=== PATIENT | male | born 1945 | race Caucasian/White ===

== ENCOUNTER → 2018-08-31 | Outpatient (CLI) | payer OTHER ==
[2015-08-16 10:55] VITALS: BP 112/72
[~2018-08-31] MED LIST: ASPI-630 PO; ATOR40TA59 PO; CLON0.5T11 PO; METO-239 PO; OMEG1CAP6 PO; WARF-78 PO
--- NOTE | 2018-08-31 15:37 | RAD ---
EXAM: CT of the soft tissue neck without IV contrast CLINICAL HISTORY: PALPABLE MASS IN ANTERIOR NECK COMPARISON: None available. TECHNIQUE: CT of the neck was performed without IV contrast. Axial coronal and sagittal reformatted images were generated. PQRS compliance statement - One or more of the following individualized dose reduction techniques were utilized for this study: 1. Automated exposure control 2. Adjustment of the mA and/or kV according to patient size 3. Use of iterative reconstruction technique FINDINGS: Evaluation for soft tissue mass is limited given lack of IV contrast. A radiopaque marker is placed overlying the anterior neck just below the chin (at the level of the hyoid bone) at the site of palpable abnormality. Subjacent to the marker, normal subcutaneous fat tissue is seen without discrete encapsulated mass. Within the constraints of this noncontrast exam: Images through the skull base and cavernous sinuses are unremarkable. The orbits are unremarkable. The paranasal sinuses and mastoid air cells are clear. The nasopharynx, oral pharynx and oral cavity including the floor of the mouth and tongue are unremarkable. The hypopharynx including the epiglottis, vallecula and pyriform sinuses are grossly unremarkable. The larynx, vocal cords and subglottic airways are unremarkable/patent. The parotid and submandibular glands are unremarkable. The thyroid gland is unremarkable. There is no evidence of pathologically enlarged lymph nodes. Multilevel degenerative changes of the cervical spine are seen. Minimal biapical pleural/painful scarring/thickening. IMPRESSION: 1. Subjacent to the radiopaque marker denoting site of patient's palpable abnormality, normal-appearing but prominent subcutaneous fat is seen without encapsulated mass. Electronically signed by: Juan Carlos Morales MD (08/31/2018 3:34 PM) [facility]
== END | disposition home or self-care (01) ==
LOC: CT 10:10
PROVIDERS: ATTEND Nurse Practitioner Family
DX: R22.1 Localized swelling, mass and lump, neck (principal)
CPT/HCPCS: 70490